=== PATIENT | male | born 1955 | race Caucasian/White ===

== ENCOUNTER 2017-12-07 19:21 | Emergency (ER) | payer SELFPAY ==
[~2017-12-07] VITALS: Ht 177.8 cm; Wt 84.8 kg
[2017-12-07 19:29] VITALS: Ht 177.8 cm; Wt 84.8 kg
[2017-12-07 20:51] VITALS: BP 153/90
== END 2017-12-07 20:51 | disposition home or self-care (01) ==
LOC: ED 19:21
DX: E10.9 Type 1 diabetes mellitus without complications (principal); I10 Essential (primary) hypertension; Z76.0 Encounter for issue of repeat prescription